=== PATIENT | male | born 1995 | race American Indian/Alaskan Native ===

== ENCOUNTER 2022-09-08 18:28 | Emergency (ER) | payer OTHER ==
[2022-09-08 18:41] VITALS: BP 122/60; PULSE 60; RESP 18; TEMP 98; BMI 25.6
[2022-09-08] MEDS ORDERED: ACETAMINOPHEN 500 MG TABLET (FP) PO ONE (19:44)
[2022-09-08] MEDS ORDERED: KETOROLAC TROMETHAMINE 30 MG/1 ML VIAL IM ONE (19:44)
[2022-09-08] MEDS ORDERED: ACETAMINOPHEN 500 MG TABLET (FP) ONE (19:50)
[2022-09-08] MEDS ORDERED: KETOROLAC TROMETHAMINE 30 MG/1 ML VIAL ONE (19:50)
== END 2022-09-08 20:31 | disposition home or self-care (01) ==
LOC: JERFT 18:28 → JER 18:28 → JERFT 20:31
PROC: 3E0233Z Introduction of Anti-inflammatory into Muscle, Percutaneous Approach (ICD-10-PCS; principal; 2022-09-08)
DX: R51.9 Headache, unspecified (principal)
CPT/HCPCS: 99284-25

== ENCOUNTER 2023-09-29 17:14 | Emergency (ER) | payer OTHER ==
[2023-09-29 18:16] VITALS: BP 104/58; PULSE 70; RESP 18; TEMP 98.4; BMI 25.1
[2023-09-29] MEDS ORDERED: LIDOCAINE 4% PATCH TP ONE (19:01)
[2023-09-29] MEDS ORDERED: KETOROLAC TROMETHAMINE 30 MG/1 ML VIAL ONE (19:01)
[2023-09-29] MEDS ORDERED: ACETAMINOPHEN 325 MG TABLET (FP) ONE (19:01)
[2023-09-29] MEDS: KETOROLAC TROMETHAMINE 30 MG/1 ML VIAL IM ONE (19:07)
[2023-09-29] MEDS: ACETAMINOPHEN 500 MG TABLET (FP) PO ONE (19:07)
[2023-09-29] MEDS: LIDOCAINE 4% PATCH TP ONE (19:07)
[2023-09-29] MEDS ORDERED: LIDOCAINE PATCH REMOVAL MC SCH (22:00)
== END 2023-09-29 19:30 | disposition home or self-care (01) ==
LOC: JER 17:14
PROC: 3E0233Z Introduction of Anti-inflammatory into Muscle, Percutaneous Approach (ICD-10-PCS; principal; 2023-09-29)
DX: M54.6 Pain in thoracic spine (principal); R11.0 Nausea
CPT/HCPCS: 99284-25

== ENCOUNTER 2024-08-19 07:22 | Day surgery (SDC) | payer OTHER ==
[2024-08-19] MEDS: BUPIVACAINE HCL/PF 0.5% (5MG/ML) 10 ML VIAL IJ ONE (15:49)
[2024-08-19 16:13] VITALS: RESP 18
[2024-08-19 17:08] VITALS: BP 113/64; PULSE 63; TEMP 97.6
== END 2024-08-19 16:45 | disposition home or self-care (01) ==
LOC: JASU-SURG 07:22
PROVIDERS: ATTEND Pain Medicine Pain Medicine
PROC: 3E0T33Z Introduction of Anti-inflammatory into Peripheral Nerves and Plexi, Percutaneous Approach (ICD-10-PCS; 2024-08-19)
PROC: 3E0T3BZ Introduction of Anesthetic Agent into Peripheral Nerves and Plexi, Percutaneous Approach (ICD-10-PCS; principal; 2024-08-19 15:45)
DX: M47.812 Spondylosis without myelopathy or radiculopathy, cervical region (principal)
CPT/HCPCS: 76000-TC-FY